=== PATIENT | female | born 2000 | race Caucasian/White ===

== ENCOUNTER 2023-01-11 16:50 | Observation (INO) | payer BC, SELFPAY ==
[2023-01-11 18:00] VITALS: BMI 27.8
[2023-01-11] MEDS: ZOLPIDEM TARTRATE (*CRX) 5 MG TABLET 10 MG PO (20:40)
--- NOTE | 2023-01-15 08:59 | PM.OBTRLD ---
OB - Triage/Final Diagnosis Visit Information Comments/Additional reasons for admission: I have assessed the risk for this patient, Meeta Brown, and determined that she would benefit from observation care. Final Diagnosis (1) Status post fall: Code(s): Z91.81 - History of falling Status: Acute
== END 2023-01-11 20:41 | disposition home or self-care (01) ==
PROVIDERS: Admitting Provider Obstetrics & Gynecology; PCP Advanced Practice Midwife; Visit Provider Obstetrics & Gynecology
DX: Z04.3 Encounter for examination and observation following other accident (principal); Z3A.37 37 weeks gestation of pregnancy
CPT/HCPCS: A9270; G0378; G0379

== ENCOUNTER 2023-01-12 09:27 | Observation (INO) | payer BC, SELFPAY ==
--- NOTE | ~2023-01-12 | US_ITS ---
EXAMINATION: US OB limited w BPP DATE: 01/12/2023 15:42 PROFESSOR OF MANAGEMENT INDICATION: Status post fall. Evaluate placenta. TECHNIQUE: Real-time transabdominal obstetric ultrasound. FINDINGS: No prior studies for comparison. There is a single living fetus in vertex presentation. The placenta is anterior right lateral withou t placenta previa. cardiac activity and movement is noted with a heart rate of 158 beats per minute. Biophysical profile: breathin of 2 movement: 2 of 2 tone: 2 of 2 Amniotic flud pocket: 2 of 2 Total score: 8 of 8 IMPRESSION: 1. Single living intrauterine in vertex presentation. 2: Total biophysical profile score of 8/8. 3: The placenta is grossly normal, without suggestion of placenta abruption. However, ultrasound is not diagnostic of abruption since acute hemorrhage can be isoechoic to be placenta. Recommend clinic al correlation. Reviewed, dictated and finalized at location B. ESSOR OF MANAGEMENT IMPRESSION: 1. Single living intrauterine in vertex presentation. 2: Total biophysical profile score of 8/8. 3: The placenta is grossly normal, without suggestion of placenta abruption. H owever, ultrasound is not diagnostic of abruption since acute hemorrhage can be isoechoic to be placenta. Recommend clinical correlation.
--- NOTE | 2023-01-12 09:27 | OBADM ---
This patient, Meeta Brown, admitted to the OB room OB Post 115 for observation. Patient/family oriented to hospital policies and general routines including ID bracelet, bed and alarms, visiting hours, pain management, procedures, bathroom and other care routines, personal items, smoking policy, room service/diet, and visiting hours. Patient/Family are encouraged to report perceived risks to care and to ask questions if they do not understand what they are told or what they should do.
[2023-01-12 09:43] VITALS: BP 120/72; PULSE 112
[2023-01-12 09:45] VITALS: BP 114/67; PULSE 126; BMI 27.9
[2023-01-12 09:54] LABS: Glucose Point of Care 115 mg/dl (65-105)
--- NOTE | 2023-01-12 10:10 | PC.NURSE ---
Called Devendra Alvarez CNM with pt admission. Pt states that she fell off of a ladder at about 0900 this am. She states that she doesn't remember what happened. She states that she has pain from hitting her head, shoulder and leg. She is unsure if she hit her abdomen. Reactive tracing noted with no contractions and no abdominal tenderness. Blood type is O positive. Monitor for 6hrs, then send to ER. Pt may eat.
--- NOTE | 2023-01-12 15:05 | PC.NURSE ---
Called Devendra Alvarez CNM with pt update. Irregular contractions noted. 1 variable deceleration noted with otherwise reactive tracing. Pt states that she took Ambien last night that was prescribed to her and thinks that she was out of it this morning when she fell. Recommended for pt to go to ER for evaluation for hitting her head. Pt states that she doesn't feel like she needs to go to the ER. May D/C if ultrasound WNL.
--- NOTE | 2023-01-14 07:39 | PM.OBTRLD ---
OB - Triage/Final Diagnosis Visit Information Date of evaluation: 01/12/23 Reason for evaluation: other (fall) Comments/Additional reasons for admission: I have assessed the risk for this patient, Meeta Brown, and determined that she would benefit from observation care. Evaluation Laboratory results: Laboratory Tests 01/12/23 09:50 POC Capillary Glucose 115 H
== END 2023-01-12 13:55 | disposition home or self-care (01) ==
PROVIDERS: Admitting Provider Obstetrics & Gynecology; Visit Provider Obstetrics & Gynecology
DX: Z04.3 Encounter for examination and observation following other accident (principal); Z3A.38 38 weeks gestation of pregnancy
CPT/HCPCS: 76815; 76819; 82948; G0378; G0379

== ENCOUNTER 2023-01-21 00:04 | Inpatient (IN) | payer BC, SELFPAY ==
[2023-01-21] VITALS (274 sets, daily range): BP systolic 96–252; BP diastolic 40–185; PULSE 59–171; RESP 16–22; TEMP 36.3–37.5; O2SAT 86–100; BMI 27.3
[2023-01-21] MEDS: LACTATED RINGERS 1,000 ML 125 ML IV CONT ×4 (00:26→13:53)
[2023-01-21] MEDS: TERBUTALINE SULFATE 1 MG/ML VIAL 0.25 MG SUB-Q (00:35)
--- NOTE | 2023-01-21 00:48 | LDADM ---
This patient, Meeta Brown, was admitted to Labor/Delivery/Recovery 105 on 01/21/23 at 00:04. Plans for labor, pain management and were discussed with patient. Patient/family oriented to hospital policies and general routines including ID bracelet, bed and alarms, visiting hours, pain management, procedures, bathroom and other care routines, personal items, smoking policy, room service/diet and guest tray routines, security routines, and visiting hours. Patient/Family are encouraged to report perceived risks to care and to ask questions if they do not understand what they are told or what they should do. See OBIX for further documentation.
--- NOTE | 2023-01-21 00:57 | P.PNAN_ITS ---
Anes - Eval Pre Procedure Procedure: Labor epidural Date/Time: 01/21/23 00:57 Pre Op Diagnosis: contractions Patient Data Age: 22 Gender: F Height: 1.6 m Weight: 70 kg Last Vital Signs Pulse 103 H 01/21/23 00:37 BP 126/67 01/21/23 00:37 Pulse Ox 100 01/21/23 00:53 O2 Del Method Room Air 01/21/23 00:46 Allergies Allergy/AdvReac Type Severity Reaction Status Date / Time No Known Allergies Allergy Verified 01/08/23 15:38 Home Medications Medication Instructions Recorded Confirmed Type prenat.vits,estefania,[id number] 1 tablet PO DAILY 01/08/23 01/08/23 History Laboratory Tests 01/21/23 01/21/23 00:39 00:39 WBC Pending RBC Pending Hgb Pending Hct Pending MCV Pending MCH Pending MCHC Pending RDW Pending Plt Count Pending MPV Pending Immature Gran % (Auto) Pending Neut % (Auto) Pending Lymph % (Auto) Pending [place] % (Auto) Pending Eos % (Auto) Pending Baso % (Auto) Pending Lymph # (Auto) Pending [place] # (Auto) Pending Eos # (Auto) Pending Baso # (Auto) Pending Abs Immat Gran (auto) Pending Absolute Neuts (auto) Pending Absolute Nucleated RBC Pending Nucleated RBC % Pending RPR Pending Patient hx anesthesia problems: none Family hx anesthesia problems: none Results Review: All pre-operative results and documents have been reviewed as part of the pre- operative evaluation. [facility] Past Medical History Medical History (Updated 01/21/23 @ 00:57 by Thao Liriano CRNA) Anxiety and depression Family History Family History Mother Diabetes mellitus Grandparent Diabetes mellitus Father Heart disease Grandparent Heart disease Social History Social History Smoking status: Never smoker Substance use: never Lack of Transportation: No Lack of Food: Never True Current Housing: I Have Housing Concerned About Future Housing: No Difficulty Paying Gas/Electric Bills: No Difficulty Paying for Meds: No Currently Unemployed: No Education: Associate Degree Difficulty w/ Childcare or Family Care: No Spiritual care concerns: No Exam Day of Procedure 01/21/23 00:57 Patient weight: normal Heart: regular rate and rhythm Lungs: clear to auscultation Airway: Mallampati scale Neurological: alert and oriented
[2023-01-21 01:00] LABS: Basophils Absolute Auto 0.1 K/mm3 (0.0-0.1); Basophils Percent Auto 0.3 % (0.2-1.2); Eosinophils Percent Auto 0.1 % (0-4.4); Hematocrit 34.9 % (37.0-47.0); Hemoglobin 11.3 g/dL (12.0-15.0); Immature Granulocyte Absolute 0.15 K/mm3 (0.00-0.031); Lymphocytes Absolute Auto 2.45 K/mm3 (0.9-3.2); Lymphocytes Percent Auto 16.8 % (18.3-44.2); Mean Corpuscular HGB Conc 32.4 g/dl (32-36); Mean Corpuscular Volume 80.2 fl (80-100); Mean Platelet Volume 10.9 fl (7.4-10.4); Monocytes Absolute Auto 1.3 K/mm3 (0.1-0.6); Monocytes Percent Auto 9.1 % (2.6-8.5); Neutrophils Absolute Auto 10.6 K/mm3 (1.3-6.7); Neutrophils Percent Auto 72.7 % (45.5-73.1); Platelet Count Result 332 k/mm3 (150-375); Red Blood Count 4.35 M/mm3 (4.2-5.4); White Blood Count 14.6 K/mm3 (4.5-10.0)
[2023-01-21] MEDS: AMPICILLIN 2 GM/NS 100 ML 2 GM/100 ML BAG IVPB (01:40)
[2023-01-21] MEDS: AMPICILLIN 1 GM/NS 50 ML 1 GM/50 ML BAG IVPB ×2 (05:46→10:00)
--- NOTE | 2023-01-21 07:07 | PM.IMHP ---
H&P: HPI History of Present Illness Date/Time: 01/21/23 07:07 Chief Complaint: Pt is a at 39.2 weeks gestation who presented overnight with frequent contractions and FHR category 2, Tachysystole, terbutaline was given. Dr. Reyes notified and more orders received. CNM SVE 4/80/-2,AROM, copious dark brown meconium fluid, IUPC placed and amnioinfusion ordered for variable decelerations. pt resting comfortably with epidural. has been uncomplicated except for fall 2 weeks ago for which she was monitored at that time. GBS is positive. Pt's history is complicated by epispadias which was corrected at . Fernandez catheter currently in place and draining. Review of Systems Review of Systems: All systems reviewed & are unremarkable except as noted in HPI and below PMFSH Past Medical History Medical History (Updated 01/21/23 @ 07:19 by Gala Alvarez CNM) Anxiety and depression Family History Family History Mother Diabetes mellitus Grandparent Diabetes mellitus Father Heart disease Grandparent Heart disease Social History Social History Smoking status: Never smoker Substance use: never Lack of Transportation: No Lack of Food: Never True Current Housing: I Have Housing Concerned About Future Housing: No Difficulty Paying Gas/Electric Bills: No Difficulty Paying for Meds: No Currently Unemployed: No Education: Associate Degree Difficulty w/ Childcare or Family Care: No Spiritual care concerns: No Meds Home Medications and Allergies Home Medications Medication Instructions Recorded Confirmed Type prenat.vits,estefania,[id number] 1 tablet PO DAILY 01/08/23 01/21/23 History Allergies Allergy/AdvReac Type Severity Reaction Status Date / Time No Known Allergies Allergy Verified 01/08/23 15:38 Vital Signs Vital Signs - 24 hr 01/21/23 00:20 01/21/23 00:25 01/21/23 00:28 Temperature Pulse Rate Respiratory Rate Blood Pressure Pulse Oximetry 100 100 100 Oxygen Delivery 01/21/23 00:33 01/21/23 00:37 01/21/23 00:38 Temperature Pulse Rate 103 H Respiratory Rate Blood Pressure 126/67 Pulse Oximetry 100 100 Oxygen Delivery 01/21/23 00:43 01/21/23 00:48 01/21/23 00:53 Temperature Pulse Rate Respiratory Rate Blood Pressure Pulse Oximetry 100 100 100 Oxygen Delivery 01/21/23 00:58 01/21/23 00:58 01/21/23 01:00 Temperature Pulse Rate 126 H Respiratory Rate Blood Pressure 152/85 H Pulse Oximetry 100 86 L Oxygen Delivery 01/21/23 01:03 01/21/23 01:08 01/21/23 01:12 Temperature Pulse Rate Respiratory Rate Blood Pressure Pulse Oximetry 100 100 100 Oxygen Delivery 01/21/23 01:14 01/21/23 01:17 01/21/23 01:19 Temperature Pulse Rate 129 H 119 H Respiratory Rate Blood Pressure 150/68 H 168/108 H Pulse Oximetry 99 Oxygen Delivery 01/21/23 01:21 01/21/23 01:22 01/21/23 01:23 Temperature Pulse Rate 124 H 121 H Respiratory Rate Blood Pressure 159/70 H 144/74 H Pulse Oximetry 100 100 Oxygen Delivery 01/21/23 01:24 01/21/23 01:26 01/21/23 01:28 Temperature Pulse Rate 125 H 131 H 117 H Respiratory Rate Blood Pressure 144/81 H 146/84 H 162/65 H Pulse Oximetry 100 Oxygen Delivery 01/21/23 01:31 01/21/23 01:33 01/21/23 01:36 Temperature Pulse Rate 119 H 118 H 110 H Respiratory Rate Blood Pressure 134/73 135/72 130/69 Pulse Oximetry 100 Oxygen Delivery 01/21/23 01:38 01/21/23 01:41 01/21/23 01:43 Temperature Pulse Rate 107 H 108 H 111 H Respiratory Rate Blood Pressure 132/72 136/75 136/71 Pulse Oximetry 100 99 Oxygen Delivery 01/21/23 01:46 01/21/23 01:48 01/21/23 01:53 Temperature Pulse Rate 107 H Respiratory Rate Blood Pressure 130/72 Pulse Oximetry
[2023-01-21] MEDS: SODIUM CHLORIDE 0.9% IV 300 ML 600 ML I-UTERINE (07:14)
[2023-01-21] MEDS: SODIUM CHLORIDE 0.9% IV 1,000 ML 150 ML I-UTERINE (07:45)
[2023-01-21 07:46] LABS: Appearance Urine Turbid (Clear); Bacteria Urine 4+ /hpf; Bilirubin Urine Negative (Negative); Blood Urine 1+ (Negative); Color Urine Yellow (Yellow); Glucose Urine UA Negative (Negative); Ketones Urine Trace mg/dL (Negative); Leukocyte Esterase Ur 3+ LEU/UL (Negative); Need Manual Microscopic Reviewed; Nitrate Urine Negative (Negative); Protein Urine 1+ mg/dL (Negative); RBC Urine 0-2 /hpf (0-2); Specific Grav Ur 1.004 (1.001-1.035); Squamous Epithelial Cell Urine None seen /hpf (Few); Urobilinogen Urine 0.2 mg/dL (<2.0); WBC Urine >100 /hpf
[2023-01-21 07:53] LABS: Add Urine Microscopic? YES
[2023-01-21 09:43] LABS: Rapid Plasma Reagin Non-Reactive (NonReactive)
--- NOTE | 2023-01-21 12:12 | PM.OBPNLAB ---
Pain Control Date/time seen: 01/21/23 12:12 SVE 6/80/-1, Meconium fluid, FHR category 2,Contractions q1-3 minutes, Eric Chavez notified of pt progress. CNM at bs and discussed option for section or to continue, pt would like to avoid , will continue to closely monitor
--- NOTE | 2023-01-21 12:35 | WPDANESEPPF ---
Anes - Initial Pre Proc Eval Procedure: Operation Date: 01/21/23 13:00 Proposed Procedures p Section - Tarah Reyes MD Date/Time: 01/21/23 12:35 Surgeon: Tarah Reyes MD Pre Op Diagnosis: contractions Patient Data Age: 22 Gender: F Height: 1.6 m Weight: 70 kg Last Vital Signs Temp 37.2 C 01/21/23 11:22 Pulse 132 H 01/21/23 12:32 Resp 16 01/21/23 04:30 BP 96/40 L 01/21/23 12:32 Pulse Ox 100 01/21/23 12:30 O2 Del Method Room Air 01/21/23 00:46 Allergies Allergy/AdvReac Type Severity Reaction Status Date / Time No Known Allergies Allergy Verified 01/08/23 15:38 Home Medications Medication Instructions Recorded Confirmed Type prenat.vits,estefania,[id number] 1 tablet PO DAILY 01/08/23 01/21/23 History Laboratory Tests 01/21/23 01/21/23 01/21/23 00:39 00:39 00:39 WBC 14.6 K/mm3 H K/mm3 (4.5-10.0) RBC 4.35 M/mm3 M/mm3 (4.2-5.4) Hgb 11.3 g/dL L g/dL (12.0-15.0) Hct 34.9 % L % (37.0-47.0) MCV 80.2 fl fl (80-100) MCH 26.0 pg pg (26-34) MCHC 32.4 g/dl g/dl (32-36) RDW 13.0 % % (11.5-14.5) Plt Count 332 k/mm3 k/mm3 (150-375) MPV 10.9 fl H fl (7.4-10.4) Immature Gran % (Auto) 1.0 % H % (0-0.5) Neut % (Auto) 72.7 % % (45.5-73.1) Lymph % (Auto) 16.8 % L % (18.3-44.2) [place] % (Auto) 9.1 % H % (2.6-8.5) Eos % (Auto) 0.1 % % (0-4.4) Baso % (Auto) 0.3 % % (0.2-1.2) Lymph # (Auto) 2.45 K/mm3 K/mm3 (0.9-3.2) [place] # (Auto) 1.3 K/mm3 H K/mm3 (0.1-0.6) Eos # (Auto) 0.0 K/mm3 K/mm3 (0-0.3) Baso # (Auto) 0.1 K/mm3 K/mm3 (0.0-0.1) Abs Immat Gran (auto) 0.15 K/mm3 H K/mm3 (0.00-0.031) Absolute Neuts (auto) 10.6 K/mm3 H K/mm3 (1.3-6.7) Absolute Nucleated RBC 0.0 K/mm3 K/mm3 (0.0-0.012) Nucleated RBC % 0.0 % % (0.0-0.2) Urine Color Urine Appearance Urine pH Ur Specific [place] Urine Protein Urine Glucose (UA) Urine Ketones Ur Blood (Man) Urine Nitrate Urine Bilirubin Urine Urobilinogen Add Ur Microanalysis Leukocyte Esterase Rfl Urine RBC Urine WBC Ur Squamous Epith Cells Urine Bacteria Urine Casts RPR Non-reactive (NonReactive) Blood Type O Positive Antibody Screen Negative 01/21/23 07:19 WBC RBC Hgb Hct MCV MCH MCHC RDW Plt Count MPV Immature Gran % (Auto) Neut % (Auto) Lymph % (Auto) [place] % (Auto) Eos % (Auto) Baso % (Auto) Lymph # (Auto) [place] # (Auto) Eos # (Auto) Baso # (Auto) Abs Immat Gran (auto) Absolute Neuts (auto) Absolute Nucleated RBC Nucleated RBC % Urine Color Yellow (Yellow) Urine Appearance Turbid H (Clear) Urine pH 7.0 (5.0-9.0) Ur Specific [place] 1.004 (1.001-1.035) Urine Protein 1+ mg/dL H mg/dL (Negative) Urine Glucose (UA) Negative mg/dL mg/dL (Negative) Urine Ketones Trace mg/dL mg/dL (Negative) Ur Blood (Man) 1+ H (Negative) Urine Nitrate Negative (Negative) Urine Bilirubin Negative (Negative) Urine Urobilinogen 0.2 mg/dL mg/dL (<2.0) Add Ur Microanalysis Reviewed Leukocyte Esterase Rfl 3+ APOLLO/UL H APOLLO/UL (Negative) Urine RBC 0-2 /hpf /hpf (0-2) Urine WBC >100 /hpf /hpf Ur Squamous Epith Cells None seen /hpf /hpf (Few) Urine Bacteria 4+ /hpf H /hpf Urine Casts 3-5 RPR Blood Type Antibody Screen Patient hx anesthesia problem
--- NOTE | 2023-01-21 12:35 | PM.OBPNLAB ---
Pain Control Date/time seen: 01/21/23 12:35 back in pt room, variability decreasing, rec section, pt questions answered and dr. tipton notified and on his way
[2023-01-21] MEDS: ceFAZolin 2 GM/D5W 50 ML 2 GM/50 ML BAG IVPB (12:43)
--- NOTE | 2023-01-21 13:32 | W.PM.PROC2 ---
Procedure Note - Detailed Date of Procedure 01/21/23 Pre-op Diagnosis intolerance of labor Post-op Diagnosis Same Procedure Performed urgent low-transverse section Surgeon Tarah Reyes MD Anesthesia Regional Indications intolerance to labor, nonreassuring heart tones Findings Normal gestational maternal anatomy, average size . severely Particulate, dense, thick meconium Description of Procedure all performed in urgent fashion:The patient was taken the operating room. She was prepped and draped in dorsal supine position with a leftward tilt. This was done after spinal anesthetic was applied. A low-transverse skin incision was made and carried down till of the fascia with the knife. The fascial incision was made with the knife. The fascial incision was extended laterally with Pineda scissors. The fascia was tented upward superiorly and inferiorly the rectus muscles were dissected off bluntly. The rectus muscles were the midline. The preperitoneal fat and peritoneum were dissected open bluntly at the superior aspect of the rectus muscles. The peritoneal incision was extended superior and inferior with good position of bladder. The uterine incision was made with a scalpel down to the level of the amniotic cavity. The amniotic cavity was entered bluntly. The was delivered. The cord was clamped and cut and the infant was handed off to waiting pediatric staff. Cord bloods were obtained. The placenta was removed manually. The uterus was exteriorized. The uterus was cleared of all clots, debris and membranes. The uterus was closed in 0 Vicryl running lock fashion. An imbricating over a was placed along the incision line as well. The uterus was returned to the abdomen. The gutters were cleared of all clots and debris. The fascia was closed with 0 Vicryl running fashion. The subcutaneous tissue was irrigated pinpoint bleeders were cauterized. The skin was closed with subcuticular absorbable luis. The skin incision line was covered with glue. The patient tolerated the procedure well. She has taken recovery room in stable condition. Sponge lap and needle counts were correct x2. Complications No immediate complications Condition Stable Disposition PACU
[2023-01-21] MEDS: OXYTOCIN 30 UNITS/NS 500 ML 30 UNITS/500 ML BAG 125 UNITS IV CONT (15:05)
--- NOTE | 2023-01-21 15:10 | SUR.OPER ---
FHT auscultated in OR at 1246. FHT 130.
--- NOTE | 2023-01-21 16:26 | PC.NURSE ---
Patient transferred to post room #282 via stretcher. Support person present. Oriented to unit, room, information board, rooming in, admission packet and security measures. Patient verbalizes understanding.
--- NOTE | 2023-01-21 17:00 | PC.NURSE ---
Spoke with mom regarding initiating using breast pump to stimulate milk production due to baby being in Level II Nursery. She would like to rest at this time and visit with family. Breast pump and kit brought into patient's room. Patient to call RN when she is ready to being pumping.
[2023-01-22] MEDS: HYDROcodone/acetaminophen (*CRX) 5-325 MG TABLET 1 TAB PO ×3 (01:52→20:15)
[2023-01-22] MEDS: SIMETHICONE 80 MG TAB.CHEW PO ×2 (01:52→09:35)
[2023-01-22] MEDS: IBUPROFEN 600 MG TABLET PO ×3 (01:52→20:15)
[2023-01-22 03:45] VITALS: BP 99/56; PULSE 100; RESP 18; TEMP 36.8; O2SAT 99
[2023-01-22 05:15] LABS: Basophils Percent Auto 0.2 % (0.2-1.2); Eosinophils Percent Auto 0.1 % (0-4.4); Hematocrit 27.1 % (37.0-47.0); Hemoglobin 8.7 g/dL (12.0-15.0); Immature Granulocyte Absolute 0.17 K/mm3 (0.00-0.031); Immature Granulocyte Percent A 0.9 % (0-0.5); Lymphocytes Absolute Auto 2.35 K/mm3 (0.9-3.2); Lymphocytes Percent Auto 11.9 % (18.3-44.2); Mean Corpuscular HGB Conc 32.1 g/dl (32-36); Mean Corpuscular Hemoglobin 26.3 pg (26-34); Mean Corpuscular Volume 81.9 fl (80-100); Mean Platelet Volume 10.7 fl (7.4-10.4); Monocytes Absolute Auto 0.8 K/mm3 (0.1-0.6); Monocytes Percent Auto 4.3 % (2.6-8.5); Neutrophils Absolute Auto 16.3 K/mm3 (1.3-6.7); Neutrophils Percent Auto 82.6 % (45.5-73.1); Platelet Count Result 313 k/mm3 (150-375); Red Blood Count 3.31 M/mm3 (4.2-5.4); Red Cell Distribution Width 13.2 % (11.5-14.5); White Blood Count 19.7 K/mm3 (4.5-10.0)
--- NOTE | 2023-01-22 07:57 | WPDANLDPN2 ---
Anes-Prog Note L&D Date/Time: 01/22/23 07:57 Comfortable throughout: labor and section Neuraxial method: epidural Epidural/Spinal procedure site: clean & non-tender Neuro status: Neuro function grossly intact. Cardiovascular status: normal Respiratory status: normal Airway patency: baseline Mental status: baseline Post-Op hydration status: normal Vital Signs: Last Vital Signs Temp 36.8 C 01/22/23 03:45 Pulse 100 01/22/23 03:45 Resp 18 01/22/23 03:45 BP 99/56 L 01/22/23 03:45 Pulse Ox 99 01/22/23 03:45 O2 Del Method Room Air 01/21/23 15:15 Pain score (VAS): 3 I/O: Intake & Output 01/21/23 01/21/23 01/22/23 15:59 23:59 07:59 Intake Total 600 750 Output Total 1550 1868 650 Balance -950 -1750 -650 Post-procedural complaints: none Patient feedback: Patient satisfied with anesthetic care.
--- NOTE | 2023-01-22 07:58 | WPDANLDNPN2 ---
Anes-Prog Note L&D-Neuraxial Date/Time: 01/22/23 07:58 Neuraxial medications: epidural PF morphine Opiod-related complaints: none Patient feedback: Patient satisfied with post-operative pain management.
--- NOTE | 2023-01-22 08:33 | PM.OBPNVD ---
OB - PN: Subj Subjective Date/time seen: 01/22/23 08:33 Patient comments: no complaints, pain well controlled, tolerating diet and flatus present OB - PN: Obj Data Labs 01/22/23 03:43 Labs: Laboratory Results - last 24 hr 01/21/23 01/22/23 00:39 03:43 WBC 19.7 H RBC 3.31 L Hgb 8.7 L Hct 27.1 L MCV 81.9 MCH 26.3 MCHC 32.1 RDW 13.2 Plt Count 313 MPV 10.7 H Immature Gran % (Auto) 0.9 H Neut % (Auto) 82.6 H Lymph % (Auto) 11.9 L [place] % (Auto) 4.3 Eos % (Auto) 0.1 Baso % (Auto) 0.2 Lymph # (Auto) 2.35 [place] # (Auto) 0.8 H Eos # (Auto) 0.0 Baso # (Auto) 0.0 Abs Immat Gran (auto) 0.17 H Absolute Neuts (auto) 16.3 H Absolute Nucleated RBC 0.0 Nucleated RBC % 0.0 RPR Non-reactive OB - PN A/P Plan day: 1 Comments: Post Op LTCS - no problems, routine recovery Time Spent With Patient Time: Total time spent is greater than 50% in coordination of care (as documented) at patient's floor/unit and/or counseling patient: Exam Const: General: cooperative, healthy appearing, comfortable and no acute distress Resp: Auscultation: no crackles, no rales, no rhonchi and no wheezes Cardio: Rhythm: regular rhythm Heart sounds: no click and no murmurs GI: Inspection: non-distended Auscultation: normal bowel sounds Extrem: General: normal to inspection, no pedal edema and no calf tenderness
[2023-01-22 09:30] VITALS: BP 108/61; PULSE 94; RESP 16; TEMP 36.7; O2SAT 99
[2023-01-22] MEDS: POLYSACCHARIDE IRON COMPLEX 150 MG CAPSULE PO ×2 (09:35→20:14)
[2023-01-22] MEDS: DOCUSATE SODIUM 100 MG CAPSULE PO ×2 (09:35→20:14)
[2023-01-22] MEDS: MULTIVIT/MIN/PREN/FOL AC/IRON TABLET 1 TAB PO (09:35)
--- NOTE | 2023-01-22 13:44 | PM.OBPRVD ---
OB - Delivery Note Procedure Delivery date: 01/22/23 Procedure: Procedures Operation Date: 01/21/23 13:00 Actual Procedure Side Surgeon p Section Bilateral Tarah Reyes MD Induction method: None Delivery augmentation: Pitocin Delivery monitor: External FHT and External Uterine Route of delivery: Laceration Description: None Specimen: No Quantitative Blood Loss (ml): 75 Anesthesia type: Epidural Disposition: Floor Baby Date of : 01/22/23 Time of : 13:23 Weeks of gestation at delivery: 38 Weight (pounds): 7 Weight (ounces): 8 Placenta delivery description: Spontaneous Cord Vessel Description: 3 Vessels score one minute: 6 score five minutes: 9
[2023-01-22] MEDS: HYDROcodone/acetaminophen (*CRX) 10-325 MG TABLET 1 TAB PO (14:08)
--- NOTE | 2023-01-22 17:54 | PC.NURSE ---
1529 Meeta left on pass to see her at [facility]. Accompanied by [id number].
[2023-01-22 20:15] VITALS: BP 126/63; PULSE 104; RESP 16; TEMP 36.6
[2023-01-23] MEDS: HYDROcodone/acetaminophen (*CRX) 5-325 MG TABLET 1 TAB PO ×2 (01:23→08:26)
[2023-01-23] MEDS: POLYSACCHARIDE IRON COMPLEX 150 MG CAPSULE PO (08:25)
[2023-01-23] MEDS: MULTIVIT/MIN/PREN/FOL AC/IRON TABLET 1 TAB PO (08:26)
[2023-01-23] MEDS: DOCUSATE SODIUM 100 MG CAPSULE PO (08:26)
[2023-01-23] MEDS: IBUPROFEN 600 MG TABLET PO (08:26)
--- NOTE | 2023-01-23 08:27 | P.DS_ITS ---
DS: Admitting Diagnosis Discharge Date 01/23/23 Admitting Diagnosis term OB - DS: Summary OB Procedures : None OB Procedures Intrapartum: Spontaneous Vag Delivery OB Procedures: : None Peripartum Data Procedures: Procedures Operation Date: 01/21/23 13:00 Actual Procedure Side Surgeon p Section Bilateral Tarah Reyes MD Time Spent with Patient Time attestation: Total time spent providing and/or coordinating discharge services: DS: Data Data Completed and Pending Pending studies at discharge: Pending at discharge 01/21/23 13:41 Surgical [PTH] Routine Discharge Plan Discharge Discharging Clinician: Tarah Reyes Patient Disposition: Home, Self-Care Activity: pelvic rest Diet: regular Patient Instructions: Antibiotic Form Stand Alone Forms: General Discharge Information Follow-up/Referrals: Tarah Reyes MD [Physician] - Discharge Medications: New hydrocodone-acetaminophen 5-325 mg tablet 1 tablet PO Q4H PRN (Reason: pain) Qty: 25 0RF Continued prenat.vits,estefania,[id number] Tablet 1 tablet PO DAILY Date of admission: 01/21/23 00:04 Primary Care Provider: PHYSICIAN,MATERIAL HANDLER FLOORPERSON Admitting Provider: Tarah Reyes Attending physician on admission: Tarah Reyes Condition: Stable
--- NOTE | 2023-01-23 08:27 | PM.OBPNVD ---
OB - PN: Subj Subjective Date/time seen: 01/23/23 08:27 Patient comments: no complaints, pain well controlled, incisional pain, tolerating diet and flatus present OB - PN: Obj Data Labs 01/22/23 03:43 OB - PN A/P Plan day: 2 Plan: routine care Comments: POD#2 LTCS - no problems, Time Spent With Patient Time: Total time spent is greater than 50% in coordination of care (as documented) at patient's floor/unit and/or counseling patient: Exam Const: General: comfortable, no acute distress and alert Resp: Effort & Inspection: normal respiratory effort Auscultation: no crackles, no rales and no rhonchi Cardio: Rate: regular rate Heart sounds: no click, no murmurs and no rubs GI: Inspection: non-distended GI Palp: No Tenderness to palpation present (GI) Auscultation: normal bowel sounds Other: Incision - CDI Extrem: General: normal to inspection, no pedal edema and no calf tenderness
[2023-01-23 08:30] VITALS: BP 115/71; PULSE 86; RESP 16; TEMP 36.6; O2SAT 100
[2023-01-23] MEDS: TETANUS,DIPHTHERIA,AC PERTUSSIS ADULT (0.5 ML) BOOSTRIX IM (08:51)
[2023-01-24 10:23] VITALS: BP 124/69; PULSE 72; RESP 16; TEMP 36.4; O2SAT 100
--- NOTE | 2023-02-16 21:12 | P.PNOB_ITS ---
OB - Triage/Final Diagnosis Visit Information Comments/Additional reasons for admission: I have assessed the risk for this patient, Meeta Brown, and determined that she would benefit from observation care. Evaluation Laboratory results: Laboratory Tests 01/21/23 01/21/23 01/21/23 00:39 00:39 00:39 WBC 14.6 H RBC 4.35 Hgb 11.3 L Hct 34.9 L MCV 80.2 MCH 26.0 MCHC 32.4 RDW 13.0 Plt Count 332 MPV 10.9 H Immature Gran % (Auto) 1.0 H Neut % (Auto) 72.7 Lymph % (Auto) 16.8 L [place] % (Auto) 9.1 H Eos % (Auto) 0.1 Baso % (Auto) 0.3 Lymph # (Auto) 2.45 [place] # (Auto) 1.3 H Eos # (Auto) 0.0 Baso # (Auto) 0.1 Abs Immat Gran (auto) 0.15 H Absolute Neuts (auto) 10.6 H Absolute Nucleated RBC 0.0 Nucleated RBC % 0.0 Urine Color Urine Appearance Urine pH Ur Specific [place] Urine Protein Urine Glucose (UA) Urine Ketones Ur Blood (Man) Urine Nitrate Urine Bilirubin Urine Urobilinogen Add Ur Microanalysis Leukocyte Esterase Rfl Urine RBC Urine WBC Ur Squamous Epith Cells Urine Bacteria Urine Casts RPR Non-reactive Blood Type O Positive Antibody Screen Negative 01/21/23 01/22/23 07:19 03:43 WBC 19.7 H RBC 3.31 L Hgb 8.7 L Hct 27.1 L MCV 81.9 MCH 26.3 MCHC 32.1 RDW 13.2 Plt Count 313 MPV 10.7 H Immature Gran % (Auto) 0.9 H Neut % (Auto) 82.6 H Lymph % (Auto) 11.9 L [place] % (Auto) 4.3 Eos % (Auto) 0.1 Baso % (Auto) 0.2 Lymph # (Auto) 2.35 [place] # (Auto) 0.8 H Eos # (Auto) 0.0 Baso # (Auto) 0.0 Abs Immat Gran (auto) 0.17 H Absolute Neuts (auto) 16.3 H Absolute Nucleated RBC 0.0 Nucleated RBC % 0.0 Urine Color Yellow Urine Appearance Turbid H Urine pH 7.0 Ur Specific [place] 1.004 Urine Protein 1+ H Urine Glucose (UA) Negative Urine Ketones Trace Ur Blood (Man) 1+ H Urine Nitrate Negative Urine Bilirubin Negative Urine Urobilinogen 0.2 Add Ur Microanalysis Reviewed Leukocyte Esterase Rfl 3+ H Urine RBC 0-2 Urine WBC >100 Ur Squamous Epith Cells None seen Urine Bacteria 4+ H Urine Casts 3-5 RPR Blood Type Antibody Screen Final Diagnosis (1) Term delivered: Code(s): O80 - Encounter for full-term uncomplicated delivery Status: Acute
== END 2023-01-23 11:15 | disposition home or self-care (01) | DRG 807 ==
LOC: ANHLDR 01:01 → ANHOB2 16:29
PROVIDERS: Advanced Practice Midwife; Admitting Provider Obstetrics & Gynecology; Visit Provider Obstetrics & Gynecology
PROC: 10E0XZZ Delivery of Products of Conception, External Approach (ICD-10-PCS; CPT 59514; principal; 2023-01-21 13:00)
DX: O77.0 Labor and delivery complicated by meconium in amniotic fluid (principal); Z37.0 Single live birth; O76 Abnormality in fetal heart rate and rhythm complicating labor and delivery; O99.824 Streptococcus B carrier state complicating childbirth; Z3A.39 39 weeks gestation of pregnancy
CPT/HCPCS: 36415; 81001; 85025; 86592; 86850; 86900; 86901; 87086; 87088; 90715; A9270; J0131; J0290; J0456; J0690; J1100; J2250; J2274; J2405; J2590; J2704; J2795; J3105; J7030; J7120